=== PATIENT | male | born 1965 | race Caucasian/White ===

== ENCOUNTER 2017-09-22 10:15 | Emergency (ER) | payer BC, OTHER ==
[~2017-09-22] VITALS: Ht 172.7 cm; Wt 100.0 kg
[2017-09-22 10:18] VITALS: BP 143/75; PULSE 73; RESP 16; TEMP 98; O2SAT 99
[2017-09-22] MEDS ORDERED: ATOR40TA16 PO (10:27)
[2017-09-22] MEDS ORDERED: KETOROLAC TROMETHAMINE 60 MG/2 ML (IM) VIAL IM ONE (10:30)
--- NOTE | 2017-09-22 10:30 | PD ---
HPI . Knee pain Chief Complaint: Pain: Acute or Chronic Time Seen by Provider: 10:21 Travel History International Travel<30 days: No Contact w/Intl Traveler<30days: No Traveled to known affect area: No History of Present Illness HPI Patient presents complaining with atraumatic left knee pain which started last night. Pain is described as sharp and continuous since its onset. Pain is rated 6/10. He has not noted any exacerbation of the pain with standing or walking. Pain has been mildly relieved by Aleve. He reports a remote knee injury in high school which required surgery. [facility] Social History Tobacco Use: No Allergies-Medications (Allergen,Severity, Reaction): Coded Allergies: No Known Allergies (Unverified , 09/22/17) Reported Meds & Prescriptions Reported Meds & Active Scripts Active Reported Atorvastatin (Atorvastatin Calcium) 40 Mg Tab 40 Mg PO HS Review of Systems Except as stated in HPI: all other systems reviewed are Neg Physical Exam Narrative GENERAL: Awake and alert and in no acute distress. Walks to the room with no difficulty. SKIN: Warm and dry. Normal skin color and tactile temperature. HEAD: Normocephalic/atraumatic. EYES: Pupils are equal. Extraocular movements are intact. NECK: Normal range of motion. CARDIOVASCULAR: Regular rate and rhythm. RESPIRATORY: Nonlabored respirations. MUSCULOSKELETAL: Fullness and tenderness in the left popliteal fossa. No tenderness to palpation of the knee joint. Passive range of motion of the knee does exacerbate pain. There is no calf tenderness. NEUROLOGICAL: Nonfocal. PSYCHIATRIC: Appropriate mood and affect. Data Data Last Documented VS Vital Signs Date Time Temp Pulse Resp B/P (MAP) Pulse Ox O2 Delivery O2 Flow Rate FiO2 09/22/17 12:16 18 09/22/17 10:18 98.0 73 143/75 (97) 99 Orders Orders Us Leg Venous Doppler (09/22/17 10:25) Knee, Complete (4vws) (09/22/17 10:25) Ketorolac Inj (Toradol Inj) (09/22/17 10:30) MDM Medical Decision Making Medical Screen Exam Complete: Yes Emergency Medical Condition: Yes Differential Diagnosis Differential diagnosis of joint pain includes but is not limited to arthritis, gout, sprain/strain, fracture, dislocation, bursitis Narrative Course This patient presents with pain and a fullness in the left popliteal fossa. I suspect a Sabillon's cyst. I have ordered plain films of the knee along with an ultrasound of the leg. His pain will be treated with Toradol. Last Impressions Lower Extremity Ultrasound 09/22/17 1025 Signed Impressions: Service Date/Time: Friday, September 22, 2017 11:11 - CONCLUSION: 1. The study is negative for deep venous thrombosis left lower extremity. Ramon Franco MD Knee X-Ray 09/22/17 1025 Signed Impressions: Service Date/Time: Friday, September 22, 2017 10:43 - CONCLUSION: No evidence of recent bony injury. Ramon Franco MD The ultrasound does not mention a Sabillon's cyst but I suspect that that is the etiology of his pain and fullness in the popliteal fossa. Diagnosis Primary Impression: Knee pain, acute Qualified Codes: M25.562 - Pain in left knee Referrals: Alexi Hodges MD Additional Instructions: Ice and elevation as needed for pain. Follow-up with orthopedics. Med/Other Pt SpecificInfo: Prescription(s) given Scripts Nabumetone (Nabumetone) 500 Mg Tab 500 MG PO BID for Pain-Inflammation, #60 TAB 0 Refills Prov: Crystal Lundberg MD 09/22/17 Disposition: 01 DISCHARGE HOME Condition: Stable Crystal Lundberg MD September 22, 2017 10:30
--- NOTE | 2017-09-22 10:59 | RADRPT ---
EXAM DATE/TIME: 09/22/2017 10:43 [facility] COMPARISON: No previous studies available for comparison. INDICATIONS : Complains of posterior left knee pain. No known injury. MEDICAL HISTORY : None. SURGICAL HISTORY : Left knee torn cartilage ENCOUNTER: Initial ACUITY: 1 day PAIN SCORE: 7/10 LOCATION: Left knee FINDINGS: Four view examination of the left knee demonstrates no evidence of fracture or dislocation. Bony min eralization is normal. The articular surfaces are intact. The suprapatellar soft tissues have a nor mal configuration. CONCLUSION: No evidence of recent bony injury. Ramon Franco MD on September 22, 2017 at 10:56 Board Certified Radiologist. This report was verified electronically.
--- NOTE | 2017-09-22 12:08 | RADRPT ---
EXAM DATE/TIME: 09/22/2017 11:11 [facility] COMPARISON: No previous studies available for comparison. INDICATIONS : Left leg pain. MEDICAL HISTORY : Hypercholesterolemia. SURGICAL HISTORY : Left knee surgery. ENCOUNTER: Initial ACUITY: 1 day PAIN SCORE: 7/10 LOCATION: Left leg. TECHNIQUE: Venous ultrasound of the leg was performed from the inguinal ligament to the proximal calf. Real-anais e, color Doppler and spectral tracing, compression and augmentation techniques were used. FINDINGS: There is normal compressibility of the deep venous system from the inguinal region to the proximal ca lf. No echogenic clot is seen in the lumen of the common femoral, femoral, popliteal, and posterior tibial veins. There is a normal response of the venous system to proximal and distal augmentation an d respiration. CONCLUSION: 1. The study is negative for deep venous thrombosis left lower extremity. Ramon Franco MD on September 22, 2017 at 12:05 Board Certified Radiologist. This report was verified electronically.
[2017-09-22 12:16] VITALS: RESP 18
[2017-09-22] MEDS ORDERED: NABU1TAB37 PO (12:24)
[2017-09-22 12:44] VITALS: BP 142/70
== END 2017-09-22 12:45 | disposition home or self-care (01) ==
LOC: NEPD 10:15
DX: M25.562 Pain in left knee (principal); I77.89 Other specified disorders of arteries and arterioles; R94.2 Abnormal results of pulmonary function studies
CPT/HCPCS: 73564; 93971; 96372; 99284; J1885